=== PATIENT | male | born 1970 | race Caucasian/White ===

== ENCOUNTER 2017-03-08 19:04 | Emergency (ER) | payer MEDICAID, MEDICARE, SELFPAY ==
[~2017-03-08] VITALS: Ht 177.8 cm; Wt 71.3 kg
[~2017-03-08 19:04] MED LIST: DRON10CA PO; ONDA2VIA3 PO; ONDA4TAB10 PO; ONDA4TAB7 PO; OXYC-229 PO; OXYC30TA66 PO
[2017-03-08 19:06] VITALS: BP 107/65
[2017-03-08] MEDS ORDERED: KETOROLAC 30 MG/1 ML IM ONE (20:30)
== END 2017-03-08 20:37 | disposition home or self-care (01) ==
LOC: ED 20:20
DX: S80.01XA Contusion of right knee, initial encounter (principal); M25.521 Pain in right elbow; W19.XXXA Unspecified fall, initial encounter; Y93.89 Activity, other specified; Y92.009 Unspecified place in unspecified non-institutional (private) residence as the place of occurrence of the external cause; Y99.9 Unspecified external cause status
CPT/HCPCS: 73080; 73564; 96372; 99284; J1885

== ENCOUNTER → 2018-03-20 | Outpatient (CLI) | payer MEDICAID, MEDICARE ==
[~2018-03-20] MED LIST changes: -OXYC-229 PO; +OXYC-307 PO; +OXYC-432 PO; +mood stabilizer PO
[2018-03-20 09:12] LABS: BASOPHILS # (AUTO) 0.05 x10^3/uL (0-0.1); BASOPHILS % (AUTO) 1 % (0-1); EOSINOPHILS % (AUTO) 2 % (1-7); LYMPHOCYTES # (AUTO) 2.72 x10^3/uL (1-3.4); LYMPHOCYTES % (AUTO) 30 % (22-44); MD NO; MEAN CORPUSCULAR HEMOGLOBIN 26.6 pg (27.5-34.5); MEAN CORPUSCULAR HGB CONC 33.1 g/dL (33.2-36.2); MEAN CORPUSCULAR VOLUME 80.4 fL (81-97); MEAN PLATELET VOLUME 8.7 fL (7.4-10.4); MONOCYTES # (AUTO) 1.01 x10^3/uL (0.2-0.8); MONOCYTES % (AUTO) 11 % (2-9); NEUTROPHILS # (AUTO) 5.18 x10^3/uL (1.8-6.8); NEUTROPHILS % (AUTO) 57 % (42-75); PLATELET COUNT 205 x10^3/uL (130-400); RED BLOOD COUNT 4.42 x10^6/uL (4.38-5.82); RED CELL DISTRIBUTION WIDTH 16.6 % (9.4-14.8)
[2018-03-20 09:15] LABS: INTERNATIONAL NORMALIZED RATIO 0.95 (0.93-1.1); PROTHROMBIN TIME 9.8 Seconds (9.6-11.5)
[2018-03-20 09:17] LABS: ANION GAP 5 mmol/L (5-15); CALCIUM 8.1 mg/dL (8.5-10.1); CHLORIDE 107 mmol/L (98-107); CREATININE 1.12 mg/dL (0.7-1.3)
[2018-03-20 09:21] LABS: MICROSCOPIC NOT IND
[2018-03-20 09:29] LABS: CULTURE INDICATED? NO
[2018-03-20 10:05] LABS: HEMOGLOBIN A1C 5.6 % (4.2-6.3)
== END | disposition home or self-care (01) ==
LOC: STAR 08:03
PROVIDERS: ATTEND Orthopaedic Surgery
DX: Z01.812 Encounter for preprocedural laboratory examination (principal); M25.561 Pain in right knee; Z96.651 Presence of right artificial knee joint; Z79.899 Other long term (current) drug therapy
CPT/HCPCS: 36415; 80048; 81003; 83036; 85025; 85610; 85730; 87081; 87806; G0475

== ENCOUNTER 2018-03-26 08:07 | Inpatient (IN) | payer MEDICAID, MEDICARE ==
[2018-03-20 08:36] VITALS: BP 122/78
[~2018-03-26] VITALS: Ht 175.3 cm; Wt 74.1 kg
[2018-03-26] MEDS ORDERED: LACTATED RINGERS 1,000 ML IV SCH (10:45)
[2018-03-26] MEDS ORDERED: GABAPENTIN 300 MG CAPSULE PO ONE (11:00)
[2018-03-26] MEDS ORDERED: ACETAMINOPHEN 500 MG TABLET PO ONE (11:00)
[2018-03-26] MEDS ORDERED: OxyconTIN ER 20 MG TAB.ER PO ONE (11:00)
[2018-03-26] MEDS ORDERED: FENTANYL PF 250 MCG/5ML ONE ×2 (12:53→15:11)
[2018-03-26] MEDS ORDERED: MIDAZOLAM 1 MG/ML, 2ML ONE (12:53)
[2018-03-26] MEDS ORDERED: PROPOFOL 10 MG/ML, 20ML ONE (12:54)
[2018-03-26] MEDS ORDERED: WATER-INJECTION,STERILE 10 ML IV ONE (12:54)
[2018-03-26] MEDS ORDERED: CEFAZOLIN 1,000 MG ONE ×3 (12:54)
[2018-03-26] MEDS ORDERED: GLYCOPYRROLATE 0.4 MG/2 ML, 2ML ONE (12:56)
[2018-03-26] MEDS ORDERED: ROCURONIUM 10MG/ML,5ML ONE (12:56)
[2018-03-26] MEDS ORDERED: NEOSTIGMINE 1 MG/ML, 10ML ONE (12:56)
[2018-03-26] MEDS ORDERED: TRANEXAMIC ACID 100 MG/ML, 10ML ONE ×4 (13:47→13:48)
[2018-03-26] MEDS ORDERED: KETOROLAC 60 MG/2 ML ONE (13:47)
[2018-03-26] MEDS ORDERED: EPINEPHRINE 1 MG/ML, 1ML ONE (13:48)
[2018-03-26] MEDS ORDERED: ROPIvacaine/PF 0.2%, 20 ML ONE (13:48)
[2018-03-26] MEDS ORDERED: SENNA/DOCUSATE TABLET PO PRN (14:30)
[2018-03-26] MEDS ORDERED: ACETAMINOPHEN 650 MG/20.3 ML UDC PO PRN (14:30)
[2018-03-26] MEDS ORDERED: DIAZEPAM 5 MG TABLET PO PRN (14:30)
[2018-03-26] MEDS ORDERED: MORPHINE SULFATE 4 MG/ML, 1ML IVPush PRN (14:30)
[2018-03-26] MEDS ORDERED: ONDANSETRON ODT 8 MG PO PRN (14:30)
[2018-03-26] MEDS ORDERED: MAGNESIUM HYDROXIDE 8%, 30ML UDC PO PRN (14:30)
[2018-03-26] MEDS ORDERED: MEPERIDINE/PF 25MG/0.5ML IVPush PRN (14:30)
[2018-03-26] MEDS ORDERED: hydrALAzine 20 MG/ML, 1ML IV PRN (14:30)
[2018-03-26] MEDS ORDERED: TRANEXAMIC ACID 1,000 MG in SODIUM CHLORIDE 0.9% 100 ML IVPB ONE (14:30)
[2018-03-26] MEDS ORDERED: LABETALOL 5MG/ML, 20ML IV PRN (14:30)
[2018-03-26] MEDS ORDERED: PROMETHAZINE 25 MG/ML, 1ML IV PRN (14:30)
[2018-03-26] MEDS ORDERED: OXYcodone 5 MG/5 ML ORAL.SOL UDC PO PRN (14:30)
[2018-03-26] MEDS ORDERED: ALUMINUM/MAG/SIMETHICONE 30 ML UDC PO PRN (14:30)
[2018-03-26] MEDS ORDERED: DIPHENHYDRAMINE 25 MG CAPSULE PO PRN (14:30)
[2018-03-26] MEDS ORDERED: FENTANYL PF 100 MCG/2ML IV PRN (14:30)
[2018-03-26] MEDS ORDERED: PROMETHAZINE 25 MG SUPP PR PRN (14:30)
[2018-03-26] MEDS ORDERED: PROMETHAZINE 12.5 MG SUPP PR PRN (14:30)
[2018-03-26] MEDS ORDERED: ONDANSETRON 2MG/ML, 2ML IV PRN (14:30)
[2018-03-26] MEDS ORDERED: ONDANSETRON 4 MG TABLET PO PRN (14:30)
[2018-03-26] MEDS ORDERED: MEPERIDINE/PF 50 MG/ML ONE (16:42)
[2018-03-26] MEDS ORDERED: HYDROmorphone 2 MG/ML, 1ML ONE (16:57)
[2018-03-26] MEDS ORDERED: OXYcodone 5 MG/5 ML ORAL.SOL UDC ONE (16:58)
[2018-03-26] MEDS: HYDROmorphone 1 MG/ML, 1ML IV PRN ×3 (17:01→23:05)
[2018-03-26 19:30] VITALS: BP 130/78
[2018-03-26] MEDS: D5%-0.45NACL+KCL 20MEQ 1,000 ML IV SCH ×2 (20:00→22:02)
[2018-03-26] MEDS: OXYcodone IR 5MG TABLET PO PRN (20:00)
[2018-03-26] MEDS: DOCUSATE 100 MG CAPSULE PO SCH (20:00)
[2018-03-26] MEDS: CEFAZOLIN PMX 1GM/50ML 50 ML IVPB SCH (21:16)
[2018-03-26 23:07] VITALS: BP 118/79
[2018-03-27] MEDS: OXYcodone IR 5MG TABLET PO PRN ×5 (00:23→22:06)
[2018-03-27 04:21] VITALS: BP 99/65
[2018-03-27] MEDS: ASPIRIN 81 MG TABLET EC PO SCH ×2 (05:20→17:07)
[2018-03-27] MEDS: CEFAZOLIN PMX 1GM/50ML 50 ML IVPB SCH (05:20)
[2018-03-27] MEDS: D5%-0.45NACL+KCL 20MEQ 1,000 ML IV SCH ×3 (05:20→22:02)
[2018-03-27] MEDS ORDERED: DEXAMETHASONE 4 MG/ML, 1ML IVPush SCH (06:00)
[2018-03-27] MEDS: HYDROmorphone 1 MG/ML, 1ML IV PRN (06:35)
[2018-03-27 07:05] VITALS: BP 108/70
[2018-03-27] MEDS: OxyconTIN ER 15 MG TAB.ER PO SCH ×2 (07:47→21:00)
[2018-03-27] MEDS: DOCUSATE 100 MG CAPSULE PO SCH ×2 (07:49→21:01)
[2018-03-27] MEDS: TAMSULOSIN 0.4 MG CAP.ER.24H PO SCH (07:49)
[2018-03-27 14:23] VITALS: BP 115/65
[2018-03-27 19:30] VITALS: BP 117/76
[2018-03-27] MEDS ORDERED: OxyconTIN ER 10 MG TAB.ER ONE ×2 (20:58→21:03)
[2018-03-27] MEDS: KETOROLAC 30 MG/1 ML IV SCH (21:01)
[2018-03-28 01:56] VITALS: BP 126/68
[2018-03-28] MEDS: OXYcodone IR 5MG TABLET PO PRN ×3 (03:05→11:21)
[2018-03-28] MEDS: D5%-0.45NACL+KCL 20MEQ 1,000 ML IV SCH (06:02)
[2018-03-28] MEDS: ASPIRIN 81 MG TABLET EC PO SCH (06:04)
[2018-03-28] MEDS: KETOROLAC 30 MG/1 ML IV SCH (06:04)
[2018-03-28 06:50] VITALS: BP 109/63
[2018-03-28] MEDS: OxyconTIN ER 15 MG TAB.ER PO SCH (08:36)
[2018-03-28] MEDS: TAMSULOSIN 0.4 MG CAP.ER.24H PO SCH (08:36)
[2018-03-28] MEDS: DOCUSATE 100 MG CAPSULE PO SCH (08:36)
[2018-03-28] MEDS ORDERED: ASPI-496 PO (11:08)
[2018-03-28] MEDS ORDERED: DOCU-131 PO (11:09)
[2018-03-28] MEDS ORDERED: CELE200C PO (11:09)
[2018-03-28] MEDS ORDERED: ONDA4TAB10 PO (11:09)
[2018-03-28] MEDS ORDERED: DIAZ5TAB PO (11:10)
[2018-03-28] MEDS ORDERED: TRAM50TA2 PO (11:10)
[2018-03-28] MEDS ORDERED: OXYC5CAP2 PO (11:11)
[2018-03-28] MEDS ORDERED: OXYC15TA60 PO (11:12)
[2018-03-28] MEDS ORDERED: PNEUMOCOCCAL 23 VACCINE IM-VACC ONE (12:00)
== END 2018-03-28 12:24 | disposition home or self-care (01) | DRG 468 ==
LOC: ORIP 10:26 → 4NOR 18:14 → DCLOUNGE 03-28 12:12
PROVIDERS: ADMIT Orthopaedic Surgery; ATTEND Orthopaedic Surgery
PROC: 0SRC0J9 Replacement of Right Knee Joint with Synthetic Substitute, Cemented, Open Approach (ICD-10-PCS; 2018-03-26)
PROC: 0SPC0JZ Removal of Synthetic Substitute from Right Knee Joint, Open Approach (ICD-10-PCS; principal; 2018-03-26 15:30)
DX: T84.032A Mechanical loosening of internal right knee prosthetic joint, initial encounter (principal); Y79.2 Prosthetic and other implants, materials and accessory orthopedic devices associated with adverse incidents; Y92.89 Other specified places as the place of occurrence of the external cause; E11.9 Type 2 diabetes mellitus without complications; Z88.0 Allergy status to penicillin; Z88.8 Allergy status to other drugs, medicaments and biological substances
CPT/HCPCS: 36415; 85014; 85018; 87015; 87070; 87075; 87102; 87116; 87205; 87206; 89051; 90732; C1713; J0171; J0690; J1100; J1170; J1885; J2175; J2250; J2704; J2710; J2795; J3010; C1776; J3480; J7120